=== PATIENT | female | born 1940 | race Hispanic/Latino ===

== ENCOUNTER 2018-05-12 19:28 | Observation (INO) | payer MEDICARE ==
[~2018-05-12] VITALS: Ht 152.4 cm; Wt 93.9 kg
[2018-05-12 00:50] VITALS: BP 176/71
[~2018-05-12 19:28] MED LIST: ACET-66 PO; AMIT10TA6 PO; AMLO5TAB7 PO; APIX5TAB PO; ASPI-555 PO; ATOR40TA69 PO; DULO30CA51 PO; FENO67CA PO; FURO20TA4 PO; GABA-529 PO; GUAI600T50 PO; INSLAN SQ; LINA5TAB PO; MEMA5TAB15 PO; METO50 PO; MULT-1130 PO; POTA20TA82 PO; RANI150T7 PO; TRAM50TA4 PO
[2018-05-12 21:55] LABS: CREATININE 2.3 mg/dL (0.5-1.5)
[2018-05-12 21:57] LABS: INR 1.07 (0.85-1.15); PARTIAL THROMBOPLASTIN TIME 30.6 SEC (26.3-35.5); PROTHROMBIN TIME 11.2 SEC (9.6-11.6)
[2018-05-12 22:05] LABS: ALBUMIN 3.3 g/dL (3.5-5.0); BILIRUBIN,TOTAL 0.5 mg/dL (0.2-1.0)
[2018-05-12 22:18] LABS: BASOPHILS % (AUTO) 0.5 % (0.0-5.0); EOSINOPHILS % (AUTO) 0.9 % (0.0-8.0); HEMATOCRIT 36.1 % (36-48); LYMPHOCYTES % (AUTO) 25.6 % (21.0-51.0); MEAN CORPUSCULAR HEMOGLOBIN 28.8 pg (27.0-33.0); MEAN CORPUSCULAR HGB CONC 32.8 g/dL (32.0-36.0); MEAN CORPUSCULAR VOLUME 87.7 fL (79-99); MONOCYTES % (AUTO) 9.6 % (3.0-13.0); NEUTROPHILS % (AUTO) 63.4 % (40.0-77.0); NUCLEATED RED BLOOD CELLS 0.1 % (0.0-0.19); RED BLOOD CELL COUNT(AUTO) 4.12 MIL/uL (4.00-5.50); RED CELL DISTRIBUTION WIDTH 16.1 % (11.0-15.5); WHITE BLOOD COUNT (AUTO) 16.1 K/uL (4.8-10.8)
[2018-05-12 22:32] LABS: PLATELET COUNT (AUTO) 120 K/uL (130-400)
[2018-05-12 23:27] LABS: BILIRUBIN,URINE Negative (NEGATIVE); COLOR,URINE Yellow (YELLOW); GLUCOSE, URINE (UA) 500 mg/dL (NEGATIVE); KETONES,URINE Negative (NEGATIVE); LEUKOCYTE ESTERASE ,URINE Trace (NEGATIVE); NITRATE,URINE Negative (NEGATIVE); OCCULT BLOOD,URINE Trace (NEGATIVE); PROTEIN,URINE Negative (NEGATIVE); UROBILINOGEN,URINE 0.2 mg/dL (0.2-1.0)
[2018-05-12 23:30] LABS: APPEARANCE,URINE SLIGHTLY CLOUDY (CLEAR)
[2018-05-12 23:41] LABS: BACTERIA,URINE None Seen /HPF (None Seen); RBC,URINE 0-1 /HPF (0-1); SQUAMOUS EPITHELIAL CELL,UR Rare /HPF (0-2); WBC,URINE 0-1 /HPF (0-1); YEAST,URINE BUDDING None Seen /HPF (None Seen)
[2018-05-12] MEDS ORDERED: CEFTRIAXONE SODIUM 1 GM ONE (23:58)
[2018-05-12] MEDS ORDERED: AZITHROMYCIN 250 MG TABLET PO ONE (23:59)
[2018-05-13 00:50] VITALS: BP 176/71
[2018-05-13] MEDS ORDERED: METO-409 PO (01:31)
[2018-05-13] MEDS ORDERED: INSU100C6 SQ (01:31)
[2018-05-13] MEDS ORDERED: VITAMIN D PO (01:31)
[2018-05-13] MEDS ORDERED: DEXTROSE 50%-WATER 50 ML DISP.SYRIN IV PRN (02:45)
[2018-05-13] MEDS ORDERED: LABETALOL 20 MG/4 ML DISP.SYRIN IV PRN (02:45)
[2018-05-13] MEDS ORDERED: GLUCAGON 1MG KIT 1 MG ML IM PRN (02:45)
[2018-05-13] MEDS ORDERED: LACTULOSE 20 GM/30 ML UDCUP PO SCH (02:45)
[2018-05-13] MEDS ORDERED: ACETAMINOPHEN 325 MG TAB PO PRN (03:00)
[2018-05-13] MEDS ORDERED: ONDANSETRON HCL MDV 20ML 2 MG/ML VIAL IV PRN (03:00)
[2018-05-13 03:40] VITALS: BP 144/57
[2018-05-13 05:31] LABS: BASOPHILS % (AUTO) 0.7 % (0.0-5.0); EOSINOPHILS % (AUTO) 1.4 % (0.0-8.0); HEMATOCRIT 35.3 % (36-48); LYMPHOCYTES % (AUTO) 31.7 % (21.0-51.0); MEAN CORPUSCULAR HEMOGLOBIN 29.5 pg (27.0-33.0); MEAN CORPUSCULAR HGB CONC 33.6 g/dL (32.0-36.0); MEAN CORPUSCULAR VOLUME 87.8 fL (79-99); MONOCYTES % (AUTO) 9.5 % (3.0-13.0); NEUTROPHILS % (AUTO) 56.7 % (40.0-77.0); NUCLEATED RED BLOOD CELLS 0.1 % (0.0-0.19); PLATELET COUNT (AUTO) 158 K/uL (130-400); RED BLOOD CELL COUNT(AUTO) 4.02 MIL/uL (4.00-5.50); WHITE BLOOD COUNT (AUTO) 11.7 K/uL (4.8-10.8)
[2018-05-13 05:37] LABS: HEMOGLOBIN A1C 9.4 % (4.0-6.0)
[2018-05-13 05:59] LABS: ALANINE AMINOTRANSFERASE 61 U/L (12-78); ASPARTATE AMINOTRANSFERASE 35 U/L (10-37); BILIRUBIN,TOTAL 0.3 mg/dL (0.2-1.0); CARBON DIOXIDE 29 mmol/L (21-32); CHLORIDE 101 mmol/L (101-111); CHOLESTEROL 141 mg/dL (<200); CREATINE KINASE, TOTAL 54 U/L (21-232); CREATININE 2.1 mg/dL (0.5-1.5); GLOMERULAR FILTR. RATE CALC 24 mL/min (>60); GLUCOSE,RANDOM 173 mg/dL (70-105); HDL CHOLESTEROL 33 mg/dL (35-85); LDL DIRECT 82 mg/dL (0-99); MYOGLOBIN 92 ng/mL (10-92); POTASSIUM 3.4 mmol/L (3.5-5.1); SODIUM SERUM 139 mmol/L (136-145); TOTAL PROTEIN, SERUM 7.2 g/dL (6.0-8.3); TRIGLYCERIDES 197 mg/dL (30-200); TROPONIN I < 0.04 ng/mL (0.00-0.06); UREA NITROGEN, BLOOD 41 mg/dL (7-18)
[2018-05-13] MEDS: LEVOFLOXACIN 500 MG/D5W 100 ML 100 ML IV SCH (06:15)
[2018-05-13] MEDS: INSULIN HUMULIN R 100 UNIT/ML 3ML SQ SCH ×4 (06:15→21:00)
[2018-05-13] MEDS: SODIUM CHLORIDE 0.9% 1000ML 1,000 ML IV SCH ×2 (06:15→12:45)
[2018-05-13 07:32] VITALS: BP 162/78
[2018-05-13 09:56] LABS: CREATINE KINASE, TOTAL 57 U/L (21-232); MYOGLOBIN 84 ng/mL (10-92)
[2018-05-13] MEDS: ASPIRIN 81MG TAB.CHEW PO SCH (10:26)
[2018-05-13] MEDS: METOPROLOL TARTRATE 25 MG TAB PO SCH ×2 (10:26→20:46)
[2018-05-13] MEDS: PANTOPRAZOLE SODIUM 40 MG TABLET.DR PO SCH (10:26)
[2018-05-13 11:06] VITALS: BP 172/76
[2018-05-13 16:00] VITALS: BP 151/70
[2018-05-13] MEDS ORDERED: TRAMADOL HCL 50 MG TABLET PO PRN (19:15)
[2018-05-13 20:00] VITALS: BP 174/78
[2018-05-13] MEDS: MEMANTINE HCL 5 MG TABLET PO SCH (20:46)
[2018-05-13] MEDS: APIXABAN 5 MG TABLET PO SCH (20:47)
[2018-05-13] MEDS: AMITRIPTYLINE HCL 10 MG TABLET PO SCH (20:47)
[2018-05-13] MEDS: GABAPENTIN 100 MG CAPSULE PO SCH (20:49)
[2018-05-13] MEDS ORDERED: NON-FORMULARY MEDICATION 1 EACH (Ranitidine HCl 150 MG) PO SCH (21:00)
[2018-05-13] MEDS ORDERED: FUROSEMIDE 20 MG TABLET PO SCH (21:00)
[2018-05-13] MEDS ORDERED: INSULIN GLARGINE 100 UNITS/ML 10 ML VIAL SQ SCH (21:00)
[2018-05-14] VITALS (7 sets, daily range): BP systolic 141–189; BP diastolic 64–87
[2018-05-14 04:33] LABS: HEMATOCRIT 35.3 % (36-48); MEAN CORPUSCULAR HEMOGLOBIN 28.5 pg (27.0-33.0); MEAN CORPUSCULAR HGB CONC 32.2 g/dL (32.0-36.0); MEAN CORPUSCULAR VOLUME 88.6 fL (79-99); NUCLEATED RED BLOOD CELLS 0.1 % (0.0-0.19); PLATELET COUNT (AUTO) 149 K/uL (130-400); RED BLOOD CELL COUNT(AUTO) 3.98 MIL/uL (4.00-5.50); RED CELL DISTRIBUTION WIDTH 16.1 % (11.0-15.5); WHITE BLOOD COUNT (AUTO) 14.5 K/uL (4.8-10.8)
[2018-05-14 04:47] LABS: ALBUMIN 3.2 g/dL (3.5-5.0); BILIRUBIN,TOTAL 0.4 mg/dL (0.2-1.0); CREATININE 1.5 mg/dL (0.5-1.5); MAGNESIUM 1.9 mg/dL (1.80-2.40); POTASSIUM 3.1 mmol/L (3.5-5.1); TOTAL PROTEIN, SERUM 7.4 g/dL (6.0-8.3)
[2018-05-14] MEDS: LEVOFLOXACIN 500 MG/D5W 100 ML 100 ML IV SCH (05:02)
[2018-05-14] MEDS: INSULIN HUMULIN R 100 UNIT/ML 3ML SQ SCH ×4 (06:54→21:00)
[2018-05-14] MEDS: GLIPIZIDE 5 MG TABLET PO SCH ×2 (07:30→17:07)
[2018-05-14] MEDS: LINAGLIPTIN 5 MG TABLET PO SCH (08:30)
[2018-05-14] MEDS ORDERED: Metoprolol Succinate 100 MG PO SCH (09:00)
[2018-05-14] MEDS ORDERED: POTASSIUM CHLORIDE 10% ELIXIR 20 MEQ/15 ML UDCUP PO PRN (10:00)
[2018-05-14] MEDS ORDERED: POTASSIUM CHLORIDE 10MEQ/100ML 100 ML IV PRN (10:00)
[2018-05-14] MEDS ORDERED: LIDOCAINE HCL-MPF 1% 2ML VIAL IVP PRN (10:00)
[2018-05-14] MEDS: APIXABAN 5 MG TABLET PO SCH ×2 (10:03→20:57)
[2018-05-14] MEDS: ATORVASTATIN CALCIUM 40 MG TABLET PO SCH (10:03)
[2018-05-14] MEDS: ASPIRIN 81MG TAB.CHEW PO SCH (10:03)
[2018-05-14] MEDS: METOPROLOL TARTRATE 25 MG TAB PO SCH ×2 (10:03→20:57)
[2018-05-14] MEDS: MEMANTINE HCL 5 MG TABLET PO SCH ×2 (10:03→20:57)
[2018-05-14] MEDS: DULOXETINE HCL 30 MG CAP PO SCH (10:03)
[2018-05-14] MEDS: PANTOPRAZOLE SODIUM 40 MG TABLET.DR PO SCH (10:04)
[2018-05-14] MEDS: FUROSEMIDE 20 MG TABLET PO SCH (12:48)
[2018-05-14] MEDS: AMLODIPINE BESYLATE 5 MG TAB PO SCH (12:51)
[2018-05-14] MEDS: POTASSIUM CHLORIDE 20 MEQ ERTAB PO PRN ×3 (12:52→17:07)
[2018-05-14] MEDS: GABAPENTIN 100 MG CAPSULE PO SCH (20:57)
[2018-05-14] MEDS: AMITRIPTYLINE HCL 10 MG TABLET PO SCH (20:57)
[2018-05-14] MEDS ORDERED: INSULIN GLARGINE 100 UNITS/ML 10 ML VIAL SQ SCH (21:00)
[2018-05-14] MEDS ORDERED: HOME MEDICATION 1 EACH PO SCH (21:00)
[2018-05-14] MEDS ORDERED: CLONAZEPAM 1 MG TABLET PO ONE (21:00)
[2018-05-15] MEDS: LEVOFLOXACIN 500 MG/D5W 100 ML 100 ML IV SCH (03:25)
[2018-05-15 04:00] VITALS: BP 125/55
[2018-05-15 04:55] LABS: HEMATOCRIT 33.6 % (36-48); MEAN CORPUSCULAR HEMOGLOBIN 29.6 pg (27.0-33.0); MEAN CORPUSCULAR HGB CONC 33.6 g/dL (32.0-36.0); MEAN CORPUSCULAR VOLUME 88.2 fL (79-99); PLATELET COUNT (AUTO) 148 K/uL (130-400); RED BLOOD CELL COUNT(AUTO) 3.81 MIL/uL (4.00-5.50); RED CELL DISTRIBUTION WIDTH 16.7 % (11.0-15.5); WHITE BLOOD COUNT (AUTO) 13.2 K/uL (4.8-10.8)
[2018-05-15 04:58] LABS: HEMOGLOBIN A1C 9.3 % (4.0-6.0)
[2018-05-15 05:09] LABS: B-TYPE NATRIURETIC PEPTIDE 1040 pg/mL (0-100)
[2018-05-15 05:18] LABS: BILIRUBIN,TOTAL 0.6 mg/dL (0.2-1.0); CREATININE 1.4 mg/dL (0.5-1.5); POTASSIUM 3.7 mmol/L (3.5-5.1); TOTAL PROTEIN, SERUM 7.2 g/dL (6.0-8.3)
[2018-05-15] MEDS: INSULIN HUMULIN R 100 UNIT/ML 3ML SQ SCH ×3 (06:19→16:30)
[2018-05-15] MEDS: GLIPIZIDE 5 MG TABLET PO SCH ×2 (06:20→16:37)
[2018-05-15] MEDS ORDERED: REGADENOSON 0.4 MG/5 ML PF SYG IVP SCH (07:00)
[2018-05-15 07:45] VITALS: BP 154/72
[2018-05-15] MEDS ORDERED: FUROSEMIDE 20 MG TABLET PO SCH (09:00)
[2018-05-15] MEDS: METOPROLOL TARTRATE 25 MG TAB PO SCH (10:05)
[2018-05-15] MEDS: PANTOPRAZOLE SODIUM 40 MG TABLET.DR PO SCH (10:05)
[2018-05-15] MEDS: LINAGLIPTIN 5 MG TABLET PO SCH (10:05)
[2018-05-15] MEDS: DULOXETINE HCL 30 MG CAP PO SCH (10:05)
[2018-05-15] MEDS: MEMANTINE HCL 5 MG TABLET PO SCH (10:05)
[2018-05-15] MEDS: AMLODIPINE BESYLATE 5 MG TAB PO SCH (10:05)
[2018-05-15] MEDS: FUROSEMIDE 20 MG TABLET PO SCH (10:05)
[2018-05-15] MEDS: ATORVASTATIN CALCIUM 40 MG TABLET PO SCH (10:05)
[2018-05-15] MEDS: ASPIRIN 81MG TAB.CHEW PO SCH (10:05)
[2018-05-15] MEDS: APIXABAN 5 MG TABLET PO SCH (10:05)
[2018-05-15 11:22] VITALS: BP 149/71
[2018-05-15] MEDS ORDERED: METOLAZONE 2.5 MG TABLET PO SCH (14:00)
[2018-05-15 15:53] VITALS: BP 134/72
[2018-05-15] MEDS ORDERED: PNEUMOCOCCAL VACCINE POLYVALENT 0.5 ML/VIAL [PPV] IM SCH (16:45)
[2018-05-15] MEDS ORDERED: LEVO500T2 PO (19:07)
[2018-05-15] MEDS ORDERED: APIX5TAB PO (19:07)
[2018-05-15] MEDS ORDERED: FURO40TA7 PO (19:07)
[2018-05-15] MEDS ORDERED: METO25 PO (19:07)
[2018-05-15] MEDS ORDERED: GLIP5TAB11 PO (19:07)
[2018-05-15] MEDS ORDERED: INSU3INS3 SQ (19:07)
[2018-05-15] MEDS ORDERED: FUROSEMIDE 40 MG TABLET PO SCH (21:00)
[2018-05-15] MEDS ORDERED: CLONAZEPAM 0.5 MG TABLET PO SCH (21:00)
[2018-05-16] MEDS ORDERED: LEVOFLOXACIN 500 MG TABLET PO SCH (09:00)
== END 2018-05-15 20:16 | disposition home or self-care (01) ==
LOC: EDH 19:28 → INTOOBSV 05-13 00:18 → EDHIP 05-13 00:18 → 4BH 05-13 00:50
PROVIDERS: ADMIT Internal Medicine; ATTEND Internal Medicine
DX: R07.89 Other chest pain (principal); D72.829 Elevated white blood cell count, unspecified; E87.2 Acidosis; I25.10 Atherosclerotic heart disease of native coronary artery without angina pectoris; I12.9 Hypertensive chronic kidney disease with stage 1 through stage 4 chronic kidney disease, or unspecified chronic kidney disease; E11.22 Type 2 diabetes mellitus with diabetic chronic kidney disease; E11.65 Type 2 diabetes mellitus with hyperglycemia; N18.4 Chronic kidney disease, stage 4 (severe); N17.9 Acute kidney failure, unspecified; I48.0 Paroxysmal atrial fibrillation; K59.00 Constipation, unspecified; E66.01 Morbid (severe) obesity due to excess calories; Z68.41 Body mass index [BMI] 40.0-44.9, adult; F41.9 Anxiety disorder, unspecified; Z82.49 Family history of ischemic heart disease and other diseases of the circulatory system; Z90.11 Acquired absence of right breast and nipple; Z80.0 Family history of malignant neoplasm of digestive organs; Z95.1 Presence of aortocoronary bypass graft; Z88.8 Allergy status to other drugs, medicaments and biological substances; Z79.01 Long term (current) use of anticoagulants; Z23 Encounter for immunization
CPT/HCPCS: G8988; G8996; G8997; 36415; 71045; 78452; 78582; 80053; 80061; 81001; 82550; 82948; 83036; 83605; 83735; 83874; 83880; 84484; 85025; 85027; 85378; 85610; 85730; 87040; 87088; 87804; 90732; 92610; 93005; 96365; 96366; 96372; 96375; A9500; A9540; A9558; G0008; G0009; G0378; J0696; J1815; J1956; J2785; J7030; J7070; Q2038

== ENCOUNTER 2018-09-18 20:02 | Observation (INO) | payer MEDICARE ==
[~2018-09-18 20:02] MED LIST changes: -AMLO5TAB7 PO; -ASPI-555 PO; -FURO20TA4 PO; +FURO40TA7 PO; +GLIP5TAB11 PO; -GUAI600T50 PO; +INSU3INS3 SQ; +LEVO500T2 PO; +METO-409 PO; +METO25 PO; -METO50 PO; +VITAMIN D PO
[2018-09-18 20:38] LABS: BASOPHILS % (AUTO) 1.2 % (0.0-5.0); EOSINOPHILS % (AUTO) 1.1 % (0.0-8.0); HEMATOCRIT 35.4 % (36-48); LYMPHOCYTES % (AUTO) 46.4 % (21.0-51.0); MEAN CORPUSCULAR HEMOGLOBIN 29.9 pg (27.0-33.0); MEAN CORPUSCULAR HGB CONC 32.7 g/dL (32.0-36.0); MEAN CORPUSCULAR VOLUME 91.5 fL (79-99); MONOCYTES % (AUTO) 7.6 % (3.0-13.0); NEUTROPHILS % (AUTO) 43.7 % (40.0-77.0); NUCLEATED RED BLOOD CELLS 0.1 % (0.0-0.19); PLATELET COUNT (AUTO) 121 K/uL (130-400); RED BLOOD CELL COUNT(AUTO) 3.87 MIL/uL (4.00-5.50); RED CELL DISTRIBUTION WIDTH 16.5 % (11.0-15.5); WHITE BLOOD COUNT (AUTO) 8.2 K/uL (4.8-10.8)
[2018-09-18 20:45] LABS: ACETONE,BLOOD NEGATIVE (NEGATIVE)
[2018-09-18 20:48] LABS: LIPASE 106 U/L (114-286)
[2018-09-18 20:53] LABS: BILIRUBIN,TOTAL 0.4 mg/dL (0.2-1.0); INR 1.06 (0.85-1.15); PARTIAL THROMBOPLASTIN TIME 30.4 SEC (26.3-35.5); POTASSIUM 3.8 mmol/L (3.5-5.1); PROTHROMBIN TIME 11.1 SEC (9.6-11.6); TOTAL PROTEIN, SERUM 6.4 g/dL (6.0-8.3)
[2018-09-18] MEDS ORDERED: INSULIN HUMULIN R 100 UNIT/ML 3ML ONE (21:37)
[2018-09-18] MEDS ORDERED: TRAMADOL HCL 50 MG TABLET PO PRN (22:45)
[2018-09-18] MEDS ORDERED: ACETAMINOPHEN 325 MG TAB PO PRN (23:00)
[2018-09-18] MEDS ORDERED: ONDANSETRON HCL 4 MG/2 ML VIAL IV PRN (23:00)
[2018-09-18] MEDS ORDERED: NITROGLYCERIN 1GM/1 INCH PACKET TD SCH (23:00)
[2018-09-18] MEDS ORDERED: HYDRALAZINE HCL 20 MG/ML VIAL IV PRN (23:00)
[2018-09-18] MEDS ORDERED: MORPHINE SULFATE 2 MG/ML 1ML SYG IV PRN (23:00)
[2018-09-18] MEDS ORDERED: ALBUTEROL SULFATE 0.083% 2.5 MG/3 ML INH IH PRN (23:15)
[2018-09-19] MEDS ORDERED: POTASSIUM CHLORIDE 20 MEQ ERTAB PO ONE ×2 (00:24→20:20)
[2018-09-19] MEDS ORDERED: GABAPENTIN 100 MG CAPSULE ONE ×2 (00:25→20:21)
[2018-09-19] MEDS ORDERED: NITROGLYCERIN 1GM/1 INCH PACKET TD ONE ×2 (00:41→17:53)
[2018-09-19] MEDS ORDERED: METOPROLOL TARTRATE 50 MG TAB PO SCH (09:00)
[2018-09-19] MEDS ORDERED: FUROSEMIDE 10 MG/ML 4ML VIAL IVP SCH (09:00)
[2018-09-19] MEDS: FENOFIBRATE 67 MG PO SCH (09:00)
[2018-09-19] MEDS ORDERED: METOPROLOL TARTRATE 25 MG TAB PO SCH (09:00)
[2018-09-19] MEDS ORDERED: ENOXAPARIN SODIUM 40 MG/0.4 ML SYRINGE SQ SCH (09:00)
[2018-09-19] MEDS ORDERED: ASPIRIN 325 MG TABLET ONE (11:29)
[2018-09-19] MEDS ORDERED: FAMOTIDINE/PF 20 MG/2 ML VIAL IV ONE (11:29)
[2018-09-19] MEDS ORDERED: FUROSEMIDE 10 MG/ML 4ML VIAL ONE ×2 (11:30→20:21)
[2018-09-19] MEDS ORDERED: INSULIN LISPRO 100 UNIT/ML 3ML SQ SCH (17:00)
[2018-09-19] MEDS ORDERED: INSULIN HUMULIN R 100 UNIT/ML 3ML ONE (18:37)
[2018-09-19] MEDS ORDERED: FAMOTIDINE 20MG TAB 20 MG TAB ONE (20:20)
[2018-09-19] MEDS ORDERED: ATORVASTATIN CALCIUM 20 MG TABLET ONE (20:20)
[2018-09-19] MEDS ORDERED: MEMANTINE HCL 5 MG TABLET ONE (20:21)
[2018-09-19] MEDS ORDERED: AMITRIPTYLINE HCL 10 MG TABLET PO SCH (21:00)
[2018-09-19] MEDS ORDERED: POTASSIUM CHLORIDE 20 MEQ ERTAB PO SCH (21:00)
[2018-09-19] MEDS ORDERED: GABAPENTIN 100 MG CAPSULE PO SCH (21:00)
[2018-09-19] MEDS ORDERED: INSULIN GLARGINE 100 UNITS/ML 10 ML VIAL SQ SCH (21:00)
[2018-09-19] MEDS: INSULIN LISPRO 100 UNIT/ML 3ML SQ SCH (21:00)
--- NOTE | 2018-09-19 22:30 | NUR ---
Patient arrived on unit at 2230. Per ED Nurse all 2100 medications were administered. Patient denies chest pain or sob. Heart rate and Rhythm in 60s. Family at bedside.
[2018-09-19 23:22] VITALS: BP 172/83
[2018-09-19 23:33] VITALS: BP 130/37
[2018-09-19] MEDS ORDERED: LORAZEPAM 0.5 MG TABLET PO PRN (23:45)
[2018-09-20 03:35] VITALS: BP 104/47
[2018-09-20 04:07] LABS: BASOPHILS % (AUTO) 0.7 % (0.0-5.0); EOSINOPHILS % (AUTO) 1.7 % (0.0-8.0); HEMATOCRIT 36.6 % (36-48); LYMPHOCYTES % (AUTO) 43.4 % (21.0-51.0); MEAN CORPUSCULAR HEMOGLOBIN 29.6 pg (27.0-33.0); MEAN CORPUSCULAR HGB CONC 32.9 g/dL (32.0-36.0); MONOCYTES % (AUTO) 10.1 % (3.0-13.0); NEUTROPHILS % (AUTO) 44.1 % (40.0-77.0); NUCLEATED RED BLOOD CELLS 0.1 % (0.0-0.19); PLATELET COUNT (AUTO) 145 K/uL (130-400); RED BLOOD CELL COUNT(AUTO) 4.07 MIL/uL (4.00-5.50); RED CELL DISTRIBUTION WIDTH 16.4 % (11.0-15.5); WHITE BLOOD COUNT (AUTO) 8.4 K/uL (4.8-10.8)
[2018-09-20 04:15] LABS: HEMOGLOBIN A1C 9.5 % (4.0-6.0)
[2018-09-20 04:26] LABS: % IRON SATURATION 16.2 % (22-44); IRON, SERUM 54 mcg/dL (50-170); TOTAL IRON BINDING CAPACITY 333 mcg/dL (250-450)
[2018-09-20 04:27] LABS: ALBUMIN 3.3 g/dL (3.5-5.0); BILIRUBIN,TOTAL 0.6 mg/dL (0.2-1.0); CREATININE 2.1 mg/dL (0.5-1.5); MAGNESIUM 1.9 mg/dL (1.80-2.40); POTASSIUM 3.3 mmol/L (3.5-5.1); TOTAL PROTEIN, SERUM 7.4 g/dL (6.0-8.3)
[2018-09-20 04:39] LABS: B-TYPE NATRIURETIC PEPTIDE 950 pg/mL (0-100)
[2018-09-20] MEDS: NITROGLYCERIN 1GM/1 INCH PACKET TD SCH ×3 (07:01→16:06)
[2018-09-20] MEDS: INSULIN LISPRO 100 UNIT/ML 3ML SQ SCH ×3 (07:02→16:41)
[2018-09-20 07:49] VITALS: BP 120/65
[2018-09-20] MEDS: APIXABAN 5 MG TABLET PO SCH ×2 (09:00→09:46)
[2018-09-20] MEDS: ATORVASTATIN CALCIUM 40 MG TABLET PO SCH ×2 (09:00→09:45)
[2018-09-20] MEDS: MEMANTINE HCL 5 MG TABLET PO SCH ×2 (09:00→09:46)
[2018-09-20] MEDS ORDERED: LINAGLIPTIN 5 MG TABLET PO SCH (09:00)
[2018-09-20] MEDS: ASPIRIN 325 MG TABLET PO SCH ×2 (09:00→09:44)
[2018-09-20] MEDS: FAMOTIDINE/PF 20 MG/2 ML VIAL IV SCH ×2 (09:00→09:45)
[2018-09-20] MEDS: FENOFIBRATE 67 MG PO SCH (09:00)
[2018-09-20] MEDS: DULOXETINE HCL 30 MG CAP PO SCH ×2 (09:00→09:46)
[2018-09-20] MEDS ORDERED: INSU200I SQ (10:50)
[2018-09-20 11:52] VITALS: BP 142/68
[2018-09-20] MEDS ORDERED: MAGNESIUM 2GM PREMIX 50ML 50 ML IV SCH (16:30)
[2018-09-20] MEDS ORDERED: POTASSIUM CHLORIDE 20 MEQ ERTAB PO SCH ×2 (16:30→18:00)
[2018-09-20 16:32] VITALS: BP 132/61
== END 2018-09-20 18:30 | disposition home or self-care (01) ==
LOC: EDH 20:02 → EDHIP 22:20 → 2AH 09-19 22:34
PROVIDERS: ADMIT Internal Medicine; ATTEND Internal Medicine
DX: R00.1 Bradycardia, unspecified (principal); E03.9 Hypothyroidism, unspecified; E11.22 Type 2 diabetes mellitus with diabetic chronic kidney disease; E11.36 Type 2 diabetes mellitus with diabetic cataract; E11.65 Type 2 diabetes mellitus with hyperglycemia; E78.5 Hyperlipidemia, unspecified; F03.90 Unspecified dementia, unspecified severity, without behavioral disturbance, psychotic disturbance, mood disturbance, and anxiety; I13.0 Hypertensive heart and chronic kidney disease with heart failure and stage 1 through stage 4 chronic kidney disease, or unspecified chronic kidney disease; I50.9 Heart failure, unspecified; N18.9 Chronic kidney disease, unspecified; N39.0 Urinary tract infection, site not specified; M81.0 Age-related osteoporosis without current pathological fracture; M19.90 Unspecified osteoarthritis, unspecified site; J45.909 Unspecified asthma, uncomplicated; I48.0 Paroxysmal atrial fibrillation; I25.10 Atherosclerotic heart disease of native coronary artery without angina pectoris; G47.33 Obstructive sleep apnea (adult) (pediatric); E78.00 Pure hypercholesterolemia, unspecified; E66.01 Morbid (severe) obesity due to excess calories; Z68.41 Body mass index [BMI] 40.0-44.9, adult; Z95.1 Presence of aortocoronary bypass graft; Z85.3 Personal history of malignant neoplasm of breast; Z79.899 Other long term (current) drug therapy; Z82.49 Family history of ischemic heart disease and other diseases of the circulatory system; Z90.11 Acquired absence of right breast and nipple
CPT/HCPCS: 36415 ×3; 71045; 80053 ×2; 82009; 82948 ×7; 83036; 83540; 83550; 83690; 83735; 83880 ×3; 84432; 84484 ×4; 85025 ×2; 85610; 85730; 93005 ×3; 93306; 93880; 94664; 96365; 96366; 96372; 96375; 99284; G0378 ×44; J1815 ×2; J1940 ×3; J3490 ×2

== ENCOUNTER → 2020-08-26 | Outpatient (CLI) | payer MEDICARE ==
[~2020-08-26] MED LIST changes: +ALBUMIN (HUMAN) 25% 200 ML IV SCH; -DULO30CA51 PO; +DULO30CA52 PO; -INSLAN SQ; +INSU200I SQ; -LEVO500T2 PO; -MEMA5TAB15 PO; +MEMA5TAB42 PO; -METO-409 PO; -METO25 PO
[2020-08-26 08:27] LABS: HEMATOCRIT 39.2 % (36-48); MEAN CORPUSCULAR HEMOGLOBIN 28.8 pg (27.0-33.0); MEAN CORPUSCULAR HGB CONC 32.1 g/dL (32.0-36.0); MEAN CORPUSCULAR VOLUME 89.5 fL (79-99); PLATELET COUNT (AUTO) 134 K/uL (130-400); RED BLOOD CELL COUNT(AUTO) 4.38 MIL/uL (4.00-5.50); RED CELL DISTRIBUTION WIDTH 18.5 % (11.0-15.5); WHITE BLOOD COUNT (AUTO) 8.8 K/uL (4.8-10.8)
[2020-08-26 08:38] LABS: BASOPHILS % (AUTO) 0.8 % (0.0-5.0); EOSINOPHILS % (AUTO) 1.7 % (0.0-8.0); LYMPHOCYTES % (AUTO) 29.3 % (21.0-51.0); MONOCYTES % (AUTO) 12.6 % (3.0-13.0); NEUTROPHILS % (AUTO) 54.9 % (40.0-77.0)
[2020-08-26 08:40] LABS: INR 1.21 (0.85-1.15); PROTHROMBIN TIME 12.7 SEC (9.6-11.6)
[2020-08-26 08:43] LABS: ALBUMIN 3.4 g/dL (3.5-5.0); BILIRUBIN,TOTAL 1.1 mg/dL (0.2-1.0); CREATININE 1.4 mg/dL (0.5-1.5); POTASSIUM 3.6 mmol/L (3.5-5.1); TOTAL PROTEIN, SERUM 7.1 g/dL (6.0-8.3)
== END ==
LOC: RAH 07:41
PROVIDERS: ATTEND Internal Medicine Gastroenterology
DX: R18.8 Other ascites (principal)
CPT/HCPCS: 36415; 76705; 80053; 85025; 85610; P9046